=== PATIENT | female | born 1975 | race Caucasian/White ===

== ENCOUNTER 2016-11-07 22:45 | Emergency (ER) | payer SELFPAY | END 2016-11-07 22:46 | disposition left against medical advice (07) | LOC: E/R 22:45 | DX: Z53.21 Procedure and treatment not carried out due to patient leaving prior to being seen by health care provider (principal) ==

== ENCOUNTER 2017-05-20 10:59 | Emergency (ER) | END 2017-05-20 17:07 | disposition home or self-care (01) ==